=== PATIENT | female | born 1980 | race Caucasian/White ===

== ENCOUNTER 2023-05-03 20:36 | Emergency (ER) | payer OTHER ==
[2023-05-03 20:42] VITALS: BP 128/88; PULSE 70; RESP 18; TEMP 98.1; BMI 29.9
[2023-05-03] MEDS ORDERED: ACETAMINOPHEN INJECTION 100 ML IVPB ONE (21:32)
[2023-05-03] MEDS: ACETAMINOPHEN 1000 MG/100 ML BAG IVPB ONE (21:51)
[2023-05-03 21:53] LABS: BASO % 0.4 % (0-2.0); EOS % 1.5 % (0-4.5); HEMATOCRIT 40.9 % (32.4-45.2); HEMOGLOBIN 13.7 GM/dL (10.7-15.3); LYMPH % 25.2 % (8-40); MCH 29.7 pg (25.7-33.7); MCHC 33.6 g/dl (32.0-36.0); MEAN CELL VOLUME 88.5 fl (80-96); MEAN PLT VOLUME 7.6 fl (7.5-11.1); MONO % 6.5 % (3.8-10.2); NEUT % 66.4 % (42.8-82.8); PLATELET COUNT 258 10^3/uL (134-434); RBC 4.62 M/mm3 (3.60-5.2); WHITE BLOOD COUNT 9.4 K/mm3 (4.0-10.0)
[2023-05-03 22:16] LABS: POTASSIUM 4.2 mmol/L (3.5-5.1)
[2023-05-03 22:18] LABS: CALCIUM 9.1 mg/dL (8.5-10.1)
[2023-05-03 22:19] LABS: ALBUMIN 3.6 g/dl (3.4-5.0); BLOOD UREA NITROGEN 15.4 mg/dL (7-18)
[2023-05-03 22:22] LABS: CREATININE 0.9 mg/dL (0.55-1.3)
[2023-05-03] MEDS ORDERED: ASPIRIN 81 MG CHEWABLE TABLETS PO ONE (22:22)
[2023-05-03 22:23] LABS: BILIRUBIN,TOTAL 0.2 mg/dL (0.2-1); TOT PROT 6.8 g/dl (6.4-8.2)
== END 2023-05-03 22:54 | disposition home or self-care (01) ==
LOC: JER 20:36
PROC: 3E030NZ Introduction of Analgesics, Hypnotics, Sedatives into Peripheral Vein, Open Approach (ICD-10-PCS; principal; 2023-05-03)
DX: R07.89 Other chest pain (principal); M79.602 Pain in left arm
CPT/HCPCS: 36415; 71046-TC-FY; 80053; 84484; 84703; 85025; 93005; 93010; 99285-25; J0131